=== PATIENT | male | born 1955 | race Caucasian/White ===

== ENCOUNTER 2022-03-28 10:44 | Day surgery (SDC) | payer MEDICARE, OTHER ==
[2022-03-28] VITALS (9 sets, daily range): BP systolic 140–154; BP diastolic 88–111
[~2022-03-28] VITALS: Ht 170.2 cm; Wt 88.5 kg
[~2022-03-28 10:44] MED LIST: HYDR-4383 PO
[2022-03-28] MEDS ORDERED: SOTA80TA73 PO (11:15)
[2022-03-28] MEDS ORDERED: MIDAZolam 1mg/ml 10ml vial IV ONE (11:15)
[2022-03-28] MEDS ORDERED: fentaNYL/PF 50MCG/1 ML 2ML syringe IV ONE (11:15)
[2022-03-28] MEDS ORDERED: normal saline 1000ml 1,000 ML IV SCH (11:15)
[2022-03-28] MEDS ORDERED: METO50TA17 PO (11:15)
[2022-03-28] MEDS ORDERED: WARF-55 PO ×2 (11:15)
== END 2022-03-28 14:25 | disposition home or self-care (01) ==
LOC: SSTAY O 10:44
PROVIDERS: ATTEND Student in an Organized Health Care Education/Training Program
DX: I48.91 Unspecified atrial fibrillation (principal); I10 Essential (primary) hypertension; Z79.899 Other long term (current) drug therapy; Z98.890 Other specified postprocedural states
CPT/HCPCS: 92960; 93005; J2250; J3010; J7030; A4620

== ENCOUNTER 2024-03-17 06:35 | Day surgery (SDC) | payer MEDICARE, OTHER ==
[2024-03-13 10:04] LABS: BASOPHILS % (AUTO) 0.9 % (0-1); EOSINOPHILS # (AUTO) 0.1 X10'3 (0-0.9); EOSINOPHILS % (AUTO) 1.3 % (0-6); LYMPHOCYTES # (AUTO) 1.3 X10'3 (1.1-4.8); LYMPHOCYTES % (AUTO) 24.8 % (21-51); MEAN CORPUSCULAR HEMOGLOBIN 31.6 PG (27.0-31.0); MEAN CORPUSCULAR HGB CONC 33.5 g/dL (33.0-36.5); MEAN CORPUSCULAR VOLUME 94.2 FL (78-98); MEAN PLATELET VOLUME 8.6 FL (7.4-10.4); MONOCYTES # (AUTO) 0.5 X10'3 (0-0.9); MONOCYTES % (AUTO) 9.7 % (2-12); NEUTROPHILS # (AUTO) 3.3 X10'3 (1.8-7.7); NEUTROPHILS % (AUTO) 63.3 % (42-75); PRE OP HEMATOCRIT 45.5 % (42.0-52.0); PRE OP HEMOGLOBIN 15.3 g/dL (14.0-17.9); PRE OP PLATELET COUNT 200 X10'3 (140-440); PRE OP WHITE BLOOD COUNT 5.2 10'3 (4.8-10.8); RED BLOOD COUNT 4.83 X10'6 (4.70-6.10); RED CELL DISTRIBUTION WIDTH 13.6 % (11.5-14.5)
[2024-03-13 10:41] LABS: ALBUMIN 3.7 G/DL (3.4-5.0); ALBUMIN/GLOBULIN RATIO 1.1 (1.1-1.5); ALKALINE PHOSPHATASE 69 IU/L (46-116); BLOOD UREA NITROGEN 10 MG/DL (7-18); BUN/CREATININE RATIO 10.8 (10.0-20.0); CALCIUM 8.7 MG/DL (8.5-10.1); CHLORIDE 104 MMOL/L (99-107); CREATININE 0.93 MG/DL (0.60-1.10); PRE OP ALT 25 U/L (30-65); PRE OP ANION GAP 7 (8-16); PRE OP AST 22 U/L (10-37); PRE OP BILIRUB, TOTAL 0.8 MG/DL (0.0-1.0); PRE OP GLUCOSE 110 MG/DL (70-104); PRE OP POTASSIUM 3.7 MMOL/L (3.4-5.1); PRE OP SODIUM 140 MMOL/L (135-145); TOTAL CARBON DIOXIDE 28.9 MMOL/L (24-32); TOTAL PROTEIN 7.1 G/DL (6.4-8.2); eGFR 81 ML/MIN
[~2024-03-17] VITALS: Ht 167.6 cm; Wt 88.5 kg
[2024-03-17] VITALS (14 sets, daily range): BP systolic 130–193; BP diastolic 71–105; PULSE 54–64; RESP 12–16; TEMP 98.1; O2SAT 97–99
[~2024-03-17 06:35] MED LIST changes: +DOCUMENT DATE & TIME OF BETA-BLOCKER PO ONE; +FLO0.4C PO; -HYDR-4383 PO; +SOTA80TA73 PO; +WARF7.5T48 PO
[2024-03-17] MEDS: cefazolin 2gm/D5W 100mL 100 ML IV ONE (07:19)
[2024-03-17] MEDS: famotidine 20mg tablet PO ONE (07:20)
[2024-03-17] MEDS: ringers solution, lacted 1,000 ML IV SCH (07:20)
[2024-03-17] MEDS ORDERED: fentaNYL/PF 50MCG/1 ML 2ML syringe IV PRN ×2 (08:10)
[2024-03-17] MEDS ORDERED: morphine 2 MG/ML inj. syringe IV PRN (08:10)
[2024-03-17] MEDS ORDERED: labetalol 20mg/4ml (5mg/ml) syringe IV PRN (08:10)
[2024-03-17] MEDS ORDERED: morphine 4 MG/ML inj SYRINge IV PRN (08:10)
[2024-03-17] MEDS ORDERED: ringers solution, lacted 1,000 ML IV SCH (08:10)
[2024-03-17] MEDS ORDERED: ondansetron/PF 4mg/2ml inj IV PRN (08:10)
[2024-03-17] MEDS ORDERED: LIDOcaine 2% (20mg/ml) 5ml vial ONE ×2 (09:18→10:04)
[2024-03-17] MEDS ORDERED: BUPIVAcaine/PF 2.5mg/ml (0.25%) 10ml vial ONE (09:18)
[2024-03-17] MEDS ORDERED: LIDOcaine 0.5% (5mg/ml) 50ml vial ONE (10:04)
[2024-03-17] MEDS ORDERED: LIDOcaine 1%/PF 5ML 10 MG/ML VIAL ONE (10:04)
[2024-03-17] MEDS ORDERED: ketorolac trometh 30MG/ML vial 30 MG/ML VIAL ONE (10:04)
[2024-03-17] MEDS ORDERED: MIDAZolam 1mg/ml 10ml vial ONE (10:04)
[2024-03-17] MEDS ORDERED: propofol inj 20 ML IV ONE (10:04)
[2024-03-17] MEDS ORDERED: fentaNYL/PF 50MCG/1 ML 2ML syringe ONE (10:04)
[2024-03-17] MEDS: BUPIVAcaine/PF 2.5mg/ml (0.25%) 10ml vial IJ ONE (10:20)
[2024-03-17] MEDS: hydrALAZINE 20mg/ml inj. IV PRN (11:27)
== END 2024-03-17 12:25 | disposition home or self-care (01) ==
LOC: PAS 06:35
PROVIDERS: ATTEND Orthopaedic Surgery Hand Surgery
DX: M18.12 Unilateral primary osteoarthritis of first carpometacarpal joint, left hand (principal); I10 Essential (primary) hypertension; I48.91 Unspecified atrial fibrillation; G47.30 Sleep apnea, unspecified; Z87.891 Personal history of nicotine dependence; Z79.01 Long term (current) use of anticoagulants; Z79.891 Long term (current) use of opiate analgesic; Z79.899 Other long term (current) drug therapy; Z90.89 Acquired absence of other organs; Z98.890 Other specified postprocedural states
CPT/HCPCS: 25310; 25447; 36415; 80053; 82948; 85025; 93005; A4215; A4618; A6449; A7000; J0360; J0690; J1885; J2001; J2250; J2704; J3010; J3490; J7030; J7120; Z7506; Z7508; Z7512; Z7610

== ENCOUNTER 2024-04-16 11:21 | Emergency (ER) | payer OTHER, MEDICARE ==
[~2024-04-16] VITALS: Ht 167.6 cm; Wt 88.6 kg
[~2024-04-16 11:21] MED LIST changes: -DOCUMENT DATE & TIME OF BETA-BLOCKER PO ONE
[2024-04-16 14:45] VITALS: BP 142/94; PULSE 70; RESP 16; TEMP 98; O2SAT 97
== END 2024-04-16 14:40 | disposition home or self-care (01) ==
LOC: ER 11:22
DX: S09.8XXA Other specified injuries of head, initial encounter (principal); S19.89XA Other specified injuries of other specified part of neck, initial encounter; M54.2 Cervicalgia; M25.531 Pain in right wrist; Z79.899 Other long term (current) drug therapy; Z79.01 Long term (current) use of anticoagulants; Z98.890 Other specified postprocedural states; V89.2XXA Person injured in unspecified motor-vehicle accident, traffic, initial encounter; Y93.89 Activity, other specified; Y92.89 Other specified places as the place of occurrence of the external cause; Y99.8 Other external cause status
CPT/HCPCS: 72040; 73130; 99284